=== PATIENT | male | born 1975 | race Caucasian/White ===

== ENCOUNTER 2019-04-09 16:03 | Emergency (ER) | payer OTHER ==
[~2019-04-09] VITALS: Ht 180.3 cm; Wt 72.6 kg
[2019-04-09] MEDS ORDERED: ZOLOFT20 MG/1 ML PO (16:18)
== END 2019-04-09 17:37 | disposition home or self-care (01) ==
LOC: ER 16:03
DX: S60.812A Abrasion of left wrist, initial encounter (principal); W45.8XXA Other foreign body or object entering through skin, initial encounter; Y93.89 Activity, other specified; Y92.89 Other specified places as the place of occurrence of the external cause; Y99.8 Other external cause status